=== PATIENT | female | born 1975 ===

== ENCOUNTER 2016-07-11 10:12 | Emergency (ER) | payer BC ==
[2016-07-11] MEDS ORDERED: Sodium Chloride 0.9% 1,000 ML IV STA (10:51)
[2016-07-11 10:54] VITALS: TEMP 97
--- NOTE | 2016-07-11 10:56 | ED PDOC ---
HPI: Female Pain Time Seen by Provider: 07/11/16 10:38 Chief Complaint (Nursing): Female Genitourinary Chief Complaint (Provider): Swelling, right labia History Per: Patient History/Exam Limitations: no limitations Onset/Duration Of Symptoms: Days (6) Current Symptoms Are (Timing): Still Present Severity: Severe Pain Scale Rating Of: 10 Quality Of Discomfort: "Pain" Additional Complaint(s): PT states she felt a little bump, right labia 6 days ago. She states it has been getting larger. Pt states she saw Dr. Zhu 3 days ago and she states she attempted to drain the are but nothing came out so she put 2 sutures in the area. Pt states it was getting more and more painful. Pt states she has been taking tylenol and antibiotics as prescribed. She called the office today and was told they would page Dr. Zhu. Pt states the nurse she talked to at the office told her she should probably just go to the ER. Past Medical History Reviewed: Historical Data, Nursing Documentation, Vital Signs - Medical History PMH: Asthma - Surgical History Surgical History: Denies: No Surg Hx Other surgeries: (+) tummy tuck - Family History Family History: States: Unknown Family Hx - Living Arrangements Living Arrangements: With Family - Immunization History Hx Tetanus Toxoid Vaccination: Yes Hx Influenza Vaccination: Yes Hx Pneumococcal Vaccination: No - Home Medications Home Medications: Ambulatory Orders Medication Instructions Recorded Cyclobenzaprine HCl [Flexeril] 10 mg PO HS #7 tab 11/07/14 oxyCODONE/Acetaminophen [Percocet 1 ea PO Q6H PRN #15 tab 07/11/16 5/325 mg Tab] - Allergies Allergies/Adverse Reactions: Allergies Allergy/AdvReac Type Severity Reaction Status Date / Time shellfish derived Allergy RASH Verified 07/11/16 10:51 Review of Systems ROS Statement: Except As Marked, All Systems Reviewed And Found Negative Genitourinary Female: Positive for: Other (Swelling, pain of the right labia ) Physical Exam - Reviewed Nursing Documentation Reviewed: Yes Vital Signs Reviewed: Yes - Physical Exam Appears: Positive for: Well, Non-toxic, No Acute Distress Head Exam: Positive for: ATRAUMATIC, NORMAL INSPECTION, NORMOCEPHALIC Skin: Positive for: Normal Color, Warm, DRY Eye Exam: Positive for: Normal appearance ENT: Positive for: Normal ENT Inspection Neck: Positive for: Normal, Painless ROM Cardiovascular/Chest: Positive for: Regular Rate, Rhythm Respiratory: Positive for: Normal Breath Sounds. Negative for: Accessory Muscle Use Gastrointestinal/Abdominal: Positive for: Other ((+) scar from incision across lower abdomen ) Pelvic Exam: Positive for: Other ((+) indurations and edema of the right labia minora and labia majora ). Negative for: External Exam Normal Back: Positive for: Normal Inspection Extremity: Positive for: Normal ROM Neurologic/Psych: Positive for: Alert, Oriented - Laboratory Results Result Diagrams: 07/11/16 11:20 07/11/16 11:20 Medical Decision Making Medical Decision Making: Discussed with Dr. Zhu. Pt to follow-up with Dr. Painting. Disposition - Clinical Impression Clinical Impression: Hypertrophy of vulva - Patient ED Disposition Is Patient to be Admitted: No - Disposition Referrals: Meño Painting MD [Staff Provider] - Disposition: Routine/Home Disposition Time: 12:38 Condition: STABLE Additional Instructions: Please follow-up with Dr. Painting [phone] Prescriptions: oxyCODONE/Acetaminophen [Percocet 5/325 mg Tab] 1 ea PO Q6H PRN #15 tab PRN Reason: Pain, Severe (8-10) Instructions: Abscess (ED)
[2016-07-11 11:40] LABS: BASO # 0.1 K/uL (0.0-0.2); BASO % 0.5 % (0.0-2.0); EOS # 0.1 K/uL (0.0-0.7); EOS % 0.5 % (0.0-4.0); LYMPH # 1.5 K/uL (1.0-4.3); LYMPH % 12.1 % (20.0-40.0); MEAN CELL VOLUME 90.5 fl (81.0-99.0); MEAN CORPUSCULAR HEMOGLOBIN 30.6 pg (27.0-31.0); MEAN CORPUSCULAR HGB CONC 33.8 g/dL (33.0-37.0); MEAN PLATELET VOLUME 9.6 fl (7.2-11.7); MONO # 0.5 K/uL (0.0-0.8); NEUT # 10.2 K/uL (1.8-7.0); NEUT % 82.9 % (50.0-75.0); NRBC % 0.1 % (0.0-0.0); WHITE BLOOD COUNT 12.4 K/uL (4.8-10.8)
[2016-07-11 11:59] LABS: ALKALINE PHOSPHATASE 102 U/L (38-126); ALT/SGPT 21 U/L (9-52); AST/SGOT 28 U/L (14-36); BLOOD UREA NITROGEN 7 mg/dl (7-17); CALCIUM 9.4 mg/dL (8.4-10.2); CARBON DIOXIDE 27 mmol/L (22-30); CHLORIDE 105 mmol/L (98-107); GFR AFRICAN-AMERICAN > 60; GLUCOSE,RANDOM 105 mg/dL (65-105); POTASSIUM 3.7 MMOL/L (3.6-5.0); SODIUM 143 mmol/l (132-148); TOTAL PROTEIN 7.7 G/DL (6.3-8.2)
[2016-07-11 19:51] VITALS: BP 126/70; PULSE 84; RESP 16; O2SAT 98
== END 2016-07-11 13:00 | disposition home or self-care (01) ==
LOC: H.ER 10:12
DX: N90.60 Unspecified hypertrophy of vulva (principal)
CPT/HCPCS: 80053; 81025; 85025; 96374; 99283; J2270; J7040

== ENCOUNTER 2016-07-12 07:49 | Emergency (ER) | payer BC ==
[2016-07-12 08:03] VITALS: BP 125/76; PULSE 93; RESP 18; TEMP 97.6; O2SAT 100
--- NOTE | 2016-07-12 08:13 | ED PDOC ---
HPI: General Adult Time Seen by Provider: 07/12/16 08:10 Chief Complaint (Provider): wound check History Per: Patient History/Exam Limitations: no limitations Additional Complaint(s): 41yo female comes to the ED for wound check. Patient was seen yesterday for bartholin cyst/abscess started on antibiotics. Patient reports significant improvement. Past Medical History Reviewed: Historical Data, Nursing Documentation, Vital Signs Vital Signs: Last Vital Signs Temp 97.6 F 07/12/16 08:02 Pulse 93 H 07/12/16 08:02 Resp 18 07/12/16 08:02 BP 125/76 07/12/16 08:02 Pulse Ox 100 07/12/16 08:23 - Medical History PMH: Asthma - Family History Family History: States: Unknown Family Hx - Immunization History Hx Tetanus Toxoid Vaccination: Yes Hx Influenza Vaccination: Yes Hx Pneumococcal Vaccination: No - Home Medications Home Medications: Ambulatory Orders Medication Instructions Recorded Cyclobenzaprine HCl [Flexeril] 10 mg PO HS #7 tab 11/07/14 Sulfamethoxazole/Trimethoprim 1 each PO BID #20 tablet 07/11/16 [Bactrim 400-80 mg Tablet] oxyCODONE/Acetaminophen [Percocet 1 ea PO Q6H PRN #15 tab 07/11/16 5/325 mg Tab] - Allergies Allergies/Adverse Reactions: Allergies Allergy/AdvReac Type Severity Reaction Status Date / Time shellfish derived Allergy RASH Verified 07/12/16 08:20 Review of Systems ROS Statement: Except As Marked, All Systems Reviewed And Found Negative Constitutional: Negative for: Fever Physical Exam - Reviewed Nursing Documentation Reviewed: Yes Vital Signs Reviewed: Yes - Physical Exam Appears: Positive for: Well, Non-toxic, No Acute Distress Head Exam: Positive for: ATRAUMATIC, NORMAL INSPECTION, NORMOCEPHALIC Skin: Positive for: Warm, Dry Pelvic Exam: Positive for: Other (Minimal swelling and erythema right labia majora. No fluctuance or tenderness. 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 [address] Painting who will see the patient in the ED. Disposition - Clinical Impression Clinical Impression: Cyst - Patient ED Disposition Is Patient to be Admitted: No - Disposition Referrals: Meño Painting MD [Staff Provider] - Disposition: Routine/Home Disposition Time: 11:40 Condition: FAIR Instructions: Cyst (ED) Additional Comments - Additional Comments Additional Comments: Scribe Attestation: Documented by Lakhwinder Vázquez acting as a scribe for Cole Kendrick MD. Provider Scribe Attestation: All medical record entries made by the Scribe were at my direction and personally dictated by me. I have reviewed the chart and agree that the record accurately reflects my personal performance of the history, physical exam, medical decision making, and the department course for this patient. I have also personally directed, reviewed, and agree with the discharge instructions and disposition.
--- NOTE | 2016-07-12 14:59 | CON ---
DATE: 07/12/2016 HISTORY OF PRESENT ILLNESS: This is a 41-year-old 0-0-2, LMP is 07/09/2016 , who reports that she has had a large ball like mass on the right side of her vagina near her anus since 07/06/2016. The patient reports that she had been doing Sitz baths and it was improving and then the ball became large, then on 07/08/2016 it attempted to be drained in the office and nothing had drained. The patient reports that the ball became larger and so she went to the ER yesterday, which was 07/11/2016, and was sent home with a prescription for Bactrim. The patient reports that she has since taken 1 Bactrim DS and has been using sitz baths every 2 hours. The patient returned to the ER today with the possibility that Dr. Meño Painting would remove the cyst for her. The patient reports that she feels much better today. Dr. Painting examined her and determined that the right labium was indurated, also palpated a nodule when he did a rectal exam that was coming up through the vaginal area on the right side. PAST MEDICAL HISTORY: Healthy. MEDICATIONS: The patient reports that she has taken 1 Bactrim-DS since yesterday. ALLERGIES: SHELLFISH. GYNECOLOGICAL HISTORY: Menarche at 11. Regular periods. The patient denies any STDs or any abnormal Pap smears. FAMILY HISTORY: Mother with hypertension. Father with prostate cancer. SOCIAL HISTORY: The patient denies tobacco, alcohol, and illicit drug use. PAST SURGICAL HISTORY: She had a labioplasty in [facility] at 19 years old. She has had 2 C-sections, the second of which was with bilateral tubal ligation. She had a dilation and curettage for bleeding twice a month in about 2013. She had an abdominoplasty in 2014. PHYSICAL EXAMINATION: VITAL SIGNS: Afebrile. Vital signs stable. GENERAL: The patient appears comfortable lying in the stretcher. GENITOURINARY: Her right labia appears indurated and there is a small mass that could be palpated on the right side when a rectal exam is done. The 2 stitches that were placed on Monday in the office are still visible. ASSESSMENT: This is a 41-year-old 2, para 2, 0-0-2 who has a cyst on right side of the vagina that developed about a week ago that seems to be getting larger and then smaller again. A perirectal abscess is in the differential. PLAN: Dr. Painting saw the patient and recommended that she be started on Keflex 500 b.i.d. for 14 days. He also recommended that 2% lidocaine jelly be called in for her and that she be started on naproxen 500 q. 12 p.r.n. for pain. The patient will come back and see me in a week and will reassess if the cyst has cooled down and if she may need surgery to have this cyst excised. Arnold Zhu MD cc: [id number] TT: 07/12/2016 14:58:24 Confirmation # [id number] Dictation # [id number] marly CURRY
== END 2016-07-12 11:56 | disposition home or self-care (01) ==
LOC: H.ER 07:49
DX: N89.8 Other specified noninflammatory disorders of vagina (principal)